=== PATIENT | female | born 1960 | race Caucasian/White ===

== ENCOUNTER 2021-10-04 12:00 | Emergency (ER) | payer BC, OTHER ==
[2021-10-04 12:53] VITALS: TEMP 98.6
[2021-10-04] MEDS ORDERED: LIDOCAINE 1% INJ 10MG/ML (20 ML MDV) SQ ONE (15:08)
[2021-10-04] MEDS ORDERED: ACET/COD 300 MG/30 MG STARTER PACK 6 TAB BTL PO STA (15:29)
[2021-10-04] MEDS ORDERED: BACITRACIN OINT 1 EACH PACKET TOPICAL ONE (15:29)
--- NOTE | 2021-10-04 15:32 | ED ---
Extremity Problem HPI - General Chief complaint: Extremity Problem,Nontraumatic Stated complaint: ingrown toenail Time Seen by Provider: 10/04/21 15:02 Source: patient, RN notes reviewed Mode of arrival: ambulatory Limitations: no limitations - History of Present Illness Initial comments: 60-year-old female presents emergency room chief complaint infected ingrown toenail she states she's been dealing with this for several months states it's skin flank but still painful, increasing swelling redness and drainage. Patient has appears or chills patient has not had any recent procedures. Patient offers no other complaints. - Related Data Home Medications Medication Instructions Recorded Confirmed Ibuprofen [Motrin] 400 mg PO Q8HR PRN 04/22/14 04/22/14 Previous Rx's Medication Instructions Recorded Acetaminophen-Codeine 300-30mg 1 each PO Q4H PRN #20 tablet 04/22/14 [Tylenol w/codeine #3] Cyclobenzaprine [Flexeril] 10 mg PO TID #20 tablet 04/22/14 Naproxen [Naprosyn] 500 mg PO Q12HR #24 tab 04/22/14 Cephalexin [Keflex] 500 mg PO Q6HR #28 cap 10/04/21 Allergies Allergy/AdvReac Type Severity Reaction Status Date / Time Sulfa (Sulfonamide Allergy Unknown Verified 04/22/14 12:05 Antibiotics) Review of Systems ROS Statement: Those systems with pertinent positive or pertinent negative responses have been documented in the HPI. ROS Other: All systems not noted in ROS Statement are negative. Past Medical History Past Medical History: No Reported History History of Any Multi-Drug Resistant Organisms: None Reported Past Surgical History: Orthopedic Surgery Past Psychological History: No Psychological Hx Reported Smoking Status: Never smoker Past Alcohol Use History: None Reported Past Drug Use History: None Reported General Exam Limitations: no limitations General appearance: alert, in no apparent distress Head exam: Present: atraumatic, normocephalic, normal inspection Eye exam: Present: normal appearance, PERRL, EOMI. Absent: scleral icterus, conjunctival injection, periorbital swelling Respiratory exam: Present: normal lung sounds bilaterally. Absent: respiratory distress, wheezes, rales, rhonchi, stridor Cardiovascular Exam: Present: regular rate, normal rhythm, normal heart sounds. Absent: systolic murmur, diastolic murmur, rubs, gallop, clicks Extremities exam: Present: other (right foot first digit there is erythema and swelling along the medial and lateral nail fold, there is some purulent drainage in in grown toenail noted) Course Vital Signs 10/04/21 12:49 Temperature 98.6 F Pulse Rate 77 Respiratory 18 Rate Blood Pressure 119/73 O2 Sat by Pulse 97 Oximetry Procedures - Procedures Initial comment: Right foot first digit toenail digital block was performed with lidocaine without epinephrine , scissors used, along the medial and lateral nail folds back to the proximal nail in which his portion was removed no complications minimal bleeding patient tolerated well - Nerve Block Consent Obtained: verbal consent Local Anesthetic Used: Lidocaine 1% Amount of anesthesia used: 10 Side: right Nerve Blocks: digital Procedure Successful: Yes Complications: none Patient Tolerated Procedure: well, no complications Disposition Clinical Impression: Ingrown toenail with infection Disposition: HOME SELF-CARE Condition: Stable Instructions (If sedation given, give patient instructions): Ingrown Nail (ED) Additional Instructions: Please return to the Emergency Department if symptoms worsen or any other concerns. Prescriptions: Cephalexin [Keflex] 500 mg PO Q6HR #28 cap Is patient prescribed a controlled substance at d/c from ED?: No Referrals: Lam Carroll DO [Primary Care Provider] - 1-2 days Time of Disposition: 15:30
[2021-10-04 15:58] VITALS: BP 122/76; PULSE 72; RESP 16
== END 2021-10-04 15:56 | disposition home or self-care (01) ==
LOC: EC 12:00
DX: L60.0 Ingrowing nail (principal); Z88.2 Allergy status to sulfonamides
CPT/HCPCS: 99283; J2001